=== PATIENT | male | born 1960 | race Caucasian/White ===

== ENCOUNTER 2020-12-31 19:44 | Emergency (ER) | payer OTHER ==
[~2020-12-31] VITALS: Ht 170.2 cm; Wt 80.7 kg
[~2020-12-31 19:44] MED LIST: GENTAMICIN SU3 MG/ML OPHTHALMIC; LEVAQUIN 500 M500 M2 PO; LISINOPRIL10 MG PO; PREVACID30 M2 PO
[2020-12-31] MEDS ORDERED: OMEPRAZOLE 20 M20 M1 PO (19:54)
[2020-12-31] MEDS ORDERED: RITALIN LA30 MG PO (19:54)
[2020-12-31 20:21] LABS: ABSOLUTE EOSINOPHILS 0.1 thou/uL (0.0-0.7); ABSOLUTE LYMPHOCYTES 2.6 thou/uL (0.8-5.3); ABSOLUTE MONOCYTES 0.7 thou/uL (0.0-1.2); ABSOLUTE NEUTROPHILS 5.7 thou/uL (1.6-8.1); BASOPHILS 0.2 %; EOSINOPHILS 1.5 %; HEMATOCRIT 38.5 % (42.0-52.0); HEMOGLOBIN 12.7 gm/dL (14.0-18.0); LYMPHOCYTES 28.7 %; MCH 24.9 pg (26.0-34.0); MCV 75.5 fL (80.0-100.0); MONOCYTES 7.6 %; NUCLEATED RBCS 0 /100WBC; PLATELET COUNT* 299 thou/uL (150-400); RBC 5.11 mil/uL (4.50-6.00); RDW-CV 16.1 % (10.5-14.5); WBC 9.2 thou/uL (4.0-11.0)
[2020-12-31 20:31] LABS: CALCIUM 9.3 mg/dL (8.5-10.1); CREATININE 0.9 mg/dL (0.6-1.3)
[2020-12-31 20:33] LABS: APTT 27.1 Seconds (25.0-31.3); PROTIME 10.9 Seconds (9.20-11.50)
[2020-12-31 20:51] LABS: ALBUMIN 4.4 g/dL (3.4-5.0); TOTAL BILIRUBIN 0.4 mg/dL (<0.1-1.0); TOTAL PROTEIN 8.5 g/dL (6.4-8.2)
[2020-12-31 23:08] VITALS: BP 106/73
--- NOTE | 2021-01-01 09:48 | EKG ---
[place] [address] ELECTROCARDIOGRAM REPORT Name: INOCENCIO MAXWELL Room: [facility]#: [id number] Admission: 12/31/20 Attend Phys: Discharge: 12/31/20 Date of : 64 Date of Service: 12/31/201948 Report #: [id number] THIS REPORT FOR: //name// [facility] ED Test Date: 2020-12-31 Test Time: 19:49:08 Pat Name: INOCENCIO MAXWELL Department: Room: Gender: Practical Nursing Faculty: : [id number] Requested By: Tiffany Daniels Order Number: [id number] MD: Taurus Lopez Measurements Intervals [place] Rate: 75 P: 34 CA: 155 QRS: 9 QRSD: 91 T: 34 QT: 372 QTc: 416 Interpretive Statements Sinus rhythm Abnormal R-wave progression, early transition Minimal ST elevation, anterior leads suggests early repolarization No previous ECG available for comparison Electronically Signed On 01-01-2021 9:48:27 CDT by Taurus Lopez [email or web address] <ELECTRONICALLY SIGNED> By: Taurus Lopez MD, [facility] 01/01/21 0948 48 48 Taurus Lopez MD, [facility] /EPI
== END 2020-12-31 23:08 | disposition home or self-care (01) ==
LOC: M.ERS 19:44
PROVIDERS: Personal Emergency Response Attendant
DX: R07.89 Other chest pain (principal); E11.9 Type 2 diabetes mellitus without complications; I10 Essential (primary) hypertension; K21.9 Gastro-esophageal reflux disease without esophagitis; E03.9 Hypothyroidism, unspecified; Z91.048 Other nonmedicinal substance allergy status